=== PATIENT | female | born 1955 | race Caucasian/White ===

== ENCOUNTER → 2020-10-20 15:03 | Outpatient (BNVA) | payer MEDICARE, SELFPAY | PROVIDERS: Visit Provider Urology | DX: N20.0 Calculus of kidney (principal) | CPT/HCPCS: Q3014 ==

== ENCOUNTER → 2021-10-22 10:31 | Outpatient (BNVA) | payer MEDICARE, SELFPAY | DX: N20.0 Calculus of kidney (principal) | CPT/HCPCS: Q3014 ==

== ENCOUNTER → 2022-10-21 08:52 | Outpatient (BNVA) | payer MEDICARE, SELFPAY | PROVIDERS: Visit Provider Nurse Practitioner Family | DX: N20.0 Calculus of kidney (principal); N28.1 Cyst of kidney, acquired | CPT/HCPCS: 99212 ==

== ENCOUNTER 2023-11-15 11:09 | Outpatient (AMB) | payer MEDICARE, SELFPAY ==
--- NOTE | 2023-11-15 11:11 | A.OFFVIS_ITS ---
Intake Visit Reasons: US f/u- [facility] Intake Note: Patient is present for US follow up-[facility] Urology Medications: Vitamin B6 Blood Thinner: aspirin Allergies: none Assistant Community Manager Required: No Accompanied by: Self / Same As Patient Allergies ciprofloxacin Allergy (Unknown, Verified 11/15/23 12:28) Unknown ezetimibe [Zetia] Allergy (Unknown, Verified 11/15/23 12:28) Unknown Medication List - Last Reconciled 11/15/23 by BRANDEN Edmond- aspirin 81 mg PO DAILY atorvastatin 80 mg PO DAILY carbamazepine ER 200 mg PO QID irbesartan 300 mg PO DAILY latanoprost 0.005% 1 drp ophthalmic (eye) BEDTIME meloxicam 15 mg PO DAILY memantine 10 mg PO BID omeprazole 20 mg PO DAILY pioglitazone 45 mg PO DAILY pyridoxine (vitamin B6) 100 mg PO DAILY 90 days timolol maleate 0.5% drps ophthalmic (eye) DAILY HPI Comments Details: Liz is a very pleasant 68 year old female patient of Dr Jones. She presents to the office today for follow-up of her nephrolithiasis. In discussion with the patient today she reports to be doing and feeling well. Recent renal imaging results reviewed with the patient today. Bilateral kidneys with no hydronephrosis. 3 mm nonobstructing right renal calculus. Left kidney with left mid pole renal cyst similar to prior study. She does report noting urinary leakage and nocturia however do not find these symptoms bothersome. She denies hematuria, dysuria, foul smelling urine, changes to urinary stream, flank pain, fever, and or chills. She does report to be drinking plenty of water daily. She reports compliance with vitamin B6 as prescribed. When asked she is happy with her current voiding parameters. In office urinalysis results reviewed with the patient today. Discussed correlation of nocturia with lower leg edema. She otherwise offers no other issues or concerns at this time. Nephrolithiasis/Urolithiasis: Discussed imaging findings Good response Continue fluid intake and vitamin B6 They are here for further evaluation for nephrolithiasis. Urolithiasis was diagnosed 11/[facility]. The patient previously had kidney stones whose composition w unknown. Prior treatment(s) include observation. Prior imaging includes 11/17 , a CT (computed tomography) scan of the abdomen/pelvis (stone protocol) 2mm distal right, 3mm right renal - 10/19 renal ultrasound no evidence of stones -10/21 renal ultrasound 3.7 mm anterior right mid pole Current therapeutic plan will be to continue with imaging surveillance - fluid encouraged - vitamin B6 Follow-up in 12 months Review of Systems Const All systems reviewed & are unremarkable except as noted in HPI and below Reports as per HPI Eyes Reports as per HPI ENT Reports as per HPI Card Reports as per HPI Resp Reports no additional complaints GI Reports no additional complaints Reports as per HPI Musc Reports no additional complaints Neuro Reports no additional complaints Psych Reports no additional complaints Endo Reports no additional complaints Physical Exam Const General: cooperative, healthy appearing, comfortable, no acute distress, well developed, alert and awake Orientation/consciousness: patient oriented x3 Limitations: no limitations HEENT Head: Yes normal to inspection, Yes normocephalic and Yes atraumatic Ears: hearing grossly normal bilaterally Eyes General: appearance normal, both eyes and all related structures Neck Neck: Yes normal visual inspection and Yes trachea midline Chest Chest palpation & inspection: normal inspection of the chest Resp Effort & Inspection: normal respiratory effort and able to speak in complete sentences Cardio Rate: regular rate GI Inspection: Yes normal to inspection General: Yes no CVA tenderness Back/Spine/Pelvis Back: no CVA tenderness Skin General skin exam: no rashes or lesions noted Neuro General: patient oriented x3 Extrem General: Yes normal to inspection Psych Appearance: grossly normal and well kempt Mental Status: mental status grossly normal Speech and movement: Normal speech and movement present and Clear speech present Affect: normal affect Attitude: cooperative Thought process: Normal thought process present Thought content: Normal thought content present Insight: Fair insight present (Psych) Judgement: Fair judgement present (Psych) Results AMB Urinalysis, Automated UA Leukoctes 0 Jose Carlos/uL Last Edit by JIA Lunsford on 11/15/23 11:24 UA Nitrite Negative Last Edit by JIA Lunsford on 11/15/23 11:24 UA Urobilinogen 0.2 mg/dL Last Edit by JIA Lunsford on 11/15/23 11:2 4 UA Protein 100 mg/dL Last Edit by JIA Lunsford on 11/15/23 11:24 UA pH 6.0 Last Edit by JIA Lunsford on 11/15/23 11:24 UA Blood 0 Loco/uL Last Edit by JIA Lunsford on 11/15/23 11:24 UA Specific [place] 1.025 Last Edit by JIA Lunsford on 11/15/23 11: 24 UA Ketone Positive Last Edit by JIA Lunsford on 11/15/23 11:24 UA Bilirubin 1 mg/dL Last Edit by JIA Lunsford on 11/15/23 11:24 UA Glucose 0 mg/dL Last Edit by JIA Lnusford on 11/15/23 11:24 Results Reviewed Results Reviewed: Laboratory Last Values Urine pH (Auto) 6.0 11/15/23 11:23 Specific [place] (Auto) 1.025 11/15/23 11:23 Urine Protein (Auto) 100 mg/dL 11/15/23 11:23 Glucose (UA)(Auto) 0 mg/dL 11/15/23 11:23 Urine Ketones (Auto) Positive 11/15/23 11:23 Urine Blood (Auto) 0 Loco/uL 11/15/23 11:23 Urine Nitrite (Auto) Negative 11/15/23 11:23 Urine Bilirubin (Auto) 1 mg/dL 11/15/23 11:23 Urine Urobilinogen (Auto) 0.2 mg/dL 11/15/23 11:23 Leukocyte Esterase (Auto) 0 Jose Carlos/uL 11/15/23 11:23 Assessment & Plan Assessment & Plan (1) Nephrolithiasis: Code(s): N20.0 - Calculus of kidney Category: Medical (2) Renal cyst: Code(s): N28.1 - Cyst of kidney, acquired Category: Medical Plan In office urinalysis results reviewed with the patient today; as noted above. Recent renal imaging results reviewed with the patient today; as noted above. Patient denies any urological issues or concerns at this time. Continue vitamin B6 as discussed and prescribed. Continue adding 1 oz of lemon juice to water daily. Ultrasound in 1 year. Follow-up in 1 year with imaging to be completed prior; or sooner with any issues, concerns, and or questions. Orders: Orders AMB Urinalysis Automated Today Z13.9 - Encounter for screening, unspecified US renal BI 1 Year N20.0 - Calculus of kidney Patient Instructions: The patient had an opportunity to ask questions regarding the treatment plan. All questions were answered. Physical exam, labs, and imaging were discussed and reviewed in detail. As well as risks, benefits, and discussion of treatment choices. No major barriers to understanding were identified. The patient expressed understanding and agreement with the above treatment plan. The patient was made aware they should contact our office by phone for worsening of their current condition, the appearance of new symptoms, or with any questions or concerns. Compliance is encouraged with any medications and follow up testing that is ordered. It is a privilege to be allowed the opportunity to participate in? your urological care.? Again, if you have any questions or concerns If you have any questions or concerns please do not hesitate to contact me. The office is [phone]. This note is constructed using voice recognition software. While every effort has been made to ensure accuracy paste up copy camera operator errors may have been included. Yours sincerely, BRANDON Edmond Coding Level of Care Code Est Pt Level 3 (49870) Complex EM visit Add On G2211 Diagnoses Nephrolithiasis N20.0 Renal cyst N28.1
== END 2023-11-15 11:58 | disposition home or self-care (01) ==
PROVIDERS: Visit Provider Nurse Practitioner Family
DX: N20.0 Calculus of kidney (principal); N28.1 Cyst of kidney, acquired; Z13.9 Encounter for screening, unspecified
CPT/HCPCS: 99213; G2211

== ENCOUNTER → 2023-11-15 11:09 | Outpatient (BNVA) | payer MEDICARE, SELFPAY | PROVIDERS: Visit Provider Nurse Practitioner Family | DX: N20.0 Calculus of kidney (principal); N28.1 Cyst of kidney, acquired | CPT/HCPCS: 81003; 99212 ==

== ENCOUNTER 2024-11-14 13:17 | Outpatient (AMB) | payer MEDICARE, SELFPAY ==
--- NOTE | 2024-11-14 13:35 | MHC.OFFVIS ---
Intake Visit Reasons: 1y/US(set) Intake Note: Patient presents today for follow up on: renal cyst, nephrolithiasis, and ultrasound results Imaging Completed: 10/29/24 Urology Medications: Vitamin B6 Blood Thinner: aspirin Allergies: none Pediatric Dental Hygienist Required: No Accompanied by: Self / Same As Patient Allergies ciprofloxacin Allergy (Unknown, Verified 11/14/24 14:14) Unknown ezetimibe (Zetia) Allergy (Unknown, Verified 11/14/24 14:14) Unknown Medication List - Last Reconciled 11/14/24 by BRANDNE Edmond- ascorbic acid (vitamin C) 100 mg PO DAILY aspirin 81 mg PO DAILY atorvastatin 80 mg PO DAILY brinzolamide 1% 1 drp ophthalmic (eye) Q8H carbamazepine ER 200 mg PO QID ginkgo biloba PO irbesartan 300 mg PO DAILY latanoprost 0.005% 1 drp ophthalmic (eye) BEDTIME meloxicam 15 mg PO DAILY memantine 10 mg PO BID omeprazole 20 mg PO DAILY pioglitazone 45 mg PO DAILY pyridoxine (vitamin B6) 100 mg PO DAILY 90 days Saccharomyces boulardii (Daily Probiotic (S. boulardii)) PO HPI Comments Details: Liz is a very pleasant 69 year old female patient of Dr Jones. She presents to the office today for follow-up of her nephrolithiasis and renal cyst. In discussion with the patient today she reports to be doing and feeling well. She reports having followed up with her PCP a few months ago as she had been experiencing left-sided lumbar discomfort as well as hip pain. She reports she was empirically treated for potential diverticulitis as she has a longstanding history of diverticulitis. She reports she was unsure if this was related to a musculoskeletal issue as she had been utilizing ice and heat in the area and feels symptoms have since subsided. She discusses her upcoming physical tomorrow. Recent renal imaging results were reviewed 11/22 mild fullness of the left renal pelvis. There are a few small hypoechoic left renal cortical lesions, likely cysts. The largest is located in the upper pole and measures 12 mm per radiology report. We did discuss previous nonobstructing 3 mm stone from previous imaging is not noted on most recent imaging. She currently denies any bothersome urinary issues or concerns. She does report noting urinary leakage and nocturia however do not find these symptoms bothersome. She denies hematuria, dysuria, foul smelling urine, changes to urinary stream, flank pain, fever, and or chills. She does report to be drinking plenty of water daily however pH and urinalysis today 5.5. We did discussed importance of adequate hydration relation to nephrolithiasis as well as overall health and well-being. She reports compliance with vitamin B6 as prescribed. When asked she is happy with her current voiding parameters. She discusses her active lifestyle and traveling to the [facility] in [place]. She otherwise offers no other issues or concerns at this time. Nephrolithiasis/Urolithiasis: Discussed imaging findings Good response Continue fluid intake and vitamin B6 They are here for further evaluation for nephrolithiasis. Urolithiasis was diagnosed 11/17 [facility]. The patient previously had kidney stones whose composition w unknown. Prior treatment(s) include observation. Prior imaging includes 11/17 , a CT (computed tomography) scan of the abdomen/pelvis (stone protocol) 2mm distal right, 3mm right renal - 10/19 renal ultrasound no evidence of stones -10/21 renal ultrasound 3.7 mm anterior right mid pole Current therapeutic plan will be to continue with imaging surveillance - fluid encouraged - vitamin B6 Follow-up in 12 months Review of Systems Const All systems reviewed & are unremarkable except as noted in HPI and below Reports as per HPI Eyes Reports as per HPI ENT Reports as per HPI Card Reports as per HPI Resp Reports no additional complaints GI Reports no additional complaints Reports as per HPI Musc Reports no additional complaints Neuro Reports no additional complaints Psych Reports no additional complaints Endo Reports no additional complaints Physical Exam Const General: cooperative, healthy appearing, comfortable, no acute distress, well developed, alert and awake Orientation/consciousness: patient oriented x3 Limitations: no limitations HEENT Head: Yes normal to inspection, Yes normocephalic and Yes atraumatic Ears: hearing grossly normal bilaterally Eyes General: appearance normal, both eyes and all related structures Neck Neck: Yes normal visual inspection and Yes trachea midline Chest Chest palpation & inspection: normal inspection of the chest Resp Effort & Inspection: normal respiratory effort and able to speak in complete sentences Cardio Rate: regular rate GI Inspection: Yes normal to inspection General: Yes no CVA tenderness Back/Spine/Pelvis Back: no CVA tenderness Skin General skin exam: no rashes or lesions noted Neuro General: patient oriented x3 Extrem General: Yes normal to inspection Psych Appearance: grossly normal and well kempt Mental Status: mental status grossly normal Speech and movement: Normal speech and movement present and Clear speech present Affect: normal affect Attitude: cooperative Thought process: Normal thought process present Thought content: Normal thought content present Insight: Fair insight present (Psych) Judgement: Fair judgement present (Psych) Results AMB Urinalysis, Automated UA Leukoctes 0 Jose Carlos/uL [facility] on 11/14/24 13:59 UA Nitrite Last Edit by [facility], [facility] on 11/14/24 13:59 UA Urobilinogen 0.2 mg/dL Last Edit by [facility], [facility] on 11/14/24 13:59 UA Protein 15 mg/dL Last Edit by [facility], [facility] on 11/14/24 13:59 UA pH 5.[address] [facility], [facility] on 11/14/24 13:59 UA Blood 0 Loco/uL Last Edit by [facility], [facility] on 11/14/24 13:59 UA Specific [place] 1.[address] [facility], [facility] on 11/14/24 13:59 UA Ketone Positive Last Edit by [facility], [facility] on 11/14/24 13:59 UA Bilirubin 0 mg/dL Last Edit by [facility], [facility] on 11/14/24 13:59 UA Glucose 0 mg/dL Last Edit by [facility], [facility] on 11/14/24 13:59 Results Reviewed Results Reviewed: Laboratory Last Values Urine pH (Auto) 5.5 11/14/24 13:37 Specific [place] (Auto) 1.030 11/14/24 13:37 Urine Protein (Auto) 15 mg/dL 11/14/24 13:37 Glucose (UA)(Auto) 0 mg/dL 11/14/24 13:37 Urine Ketones (Auto) Positive 11/14/24 13:37 Urine Blood (Auto) 0 Loco/uL 11/14/24 13:37 Urine Bilirubin (Auto) 0 mg/dL 11/14/24 13:37 Urine Urobilinogen (Auto) 0.2 mg/dL 11/14/24 13:37 Leukocyte Esterase (Auto) 0 Jose Carlos/uL 11/14/24 13:37 Assessment & Plan Assessment & Plan (1) Nephrolithiasis: Code(s): N20.0 - Calculus of kidney Category: Medical (2) Renal cyst: Code(s): N28.1 - Cyst of kidney, acquired Category: Medical Plan In office urinalysis results reviewed with the patient today; as noted above. Recent retroperitoneal ultrasound results reviewed with the patient today; as noted above. Will continue with surveillance monitoring. Continue vitamin B6 as discussed and prescribed. We discussed the importance of adequate hydration relation to nephrolithiasis as well as overall health and well-being. She currently denies any bothersome urinary issues. She reports be happy current voiding parameters. Will obtain retroperitoneal ultrasound in 1 year. Follow-up in 1 year with imaging to be completed prior; or sooner with any issues, concerns, and or questions. Orders: Orders US retroperitoneal comp Today N20.0 - Calculus of kidney, N28.1 - Cyst of kidney, acquired AMB Urinalysis Automated Today Z13.9 - Encounter for screening, unspecified Patient Instructions: The patient had an opportunity to ask questions regarding the treatment plan. All questions were answered. Physical exam, labs, and imaging were discussed and reviewed in detail. As well as risks, benefits, and discussion of treatment choices. No major barriers to understanding were identified. The patient expressed understanding and agreement with the above treatment plan. The patient was made aware they should contact our office by phone for worsening of their current condition, the appearance of new symptoms, or with any questions or concerns. Compliance is encouraged with any medications and follow up testing that is ordered. It is a privilege to be allowed the opportunity to participate in? your urological care.? Again, if you have any questions or concerns If you have any questions or concerns please do not hesitate to contact me. The office is [phone]. This note is constructed using voice recognition software. While every effort has been made to ensure accuracy singe machine operator errors may have been included. Yours sincerely, BRANDON Edmond Coding Level of Care Code Est Pt Level 3 (36903) Complex EM visit Add On G2211 Diagnoses Nephrolithiasis N20.0 Renal cyst N28.1
--- OUTSIDE RECORDS SUMMARY | 2024-11-14 13:45 | XMS_ITS | Patient Health Record ---
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 Name Role Phone Kirill Live MD Primary Care Provider Zuleima Hunter [phone] Allergies Allergen (clinical drug ingredient) Drug/Non Drug Allergy documented on EMR Reaction Allergy Type Onset Date Status brimonidine Alphagan P Unknown Drug Allergy Acti ve ciprofloxacin CIPRO Diarrhea Drug Allergy Act varsha ezetimibe Zetia Unknown Drug Allergy Active Reason For Referral No Information Medications Medication SIG (Take, Route, Frequency, Duration) Notes Start Date End Date Status Memantine HCl 10 MG 1 tablet Orally Twic e a day; Duration: 30 day(s) Active Timoptic 0.5 % 1 drop into affected eye Ophthalmic Once a day Active PreserVision AREDS - as directed Orally Active Meloxicam 15 MG 1 tablet Orally Once a day Active Atorvastatin Calcium 80 MG 1 tablet Orally Once a day Active Omeprazole 20 MG 1 capsule 30 minutes before morning meal Orally Once a day; Duration: 30 day(s) Active Actos 45 MG 1 tablet Orally Once a day; Duration: 30 day(s) Active Calcium 600 MG 1 tablet with meals Orally Twice a day; Duration: 30 day(s) Active Aspirin EC 81MG 1 ORAL daily; Duration: -3 09/05/2011 Active Latanoprost 0.005 % Ophthalmic Active Vitamin B6 100 MG 1 tablet Orally Once a day; Duration: 30 day(s) Unknown Dose Active Social History Tobacco Use: Social History Observation Description Date Details (start date - stop date) Former Smoker NA - NA Tobacco Use/Smoking Question Answer Notes Are you a former smoker How long has it been since you last smoked? > 10 years Alcohol Screen (Audit-C) Question Answer Notes Did you have a drink contain ing alcohol in the past year? Yes How often did you have a dri nk containing alcohol in the past year? 2 to 4 times a month (2 points) How many drinks did you have on a typical day when you were drinking in the past year? 1 or 2 drinks (0 point) Points 2 Interpretation Negative Sexual History Question Answer Notes Had sex in the past 12 months (vaginal, oral, or anal)? No Section Notes: Marital status: single Children: none Occupation: employed full-time Nutrition: average diet Exercise: regular walking Sexual activity: not sexually active Contraception: menopause .CE: Smoking: Former smoker .CE: Alcohol: socially drinks alcohol Text messaging while driving: no Sunscreen: yes Illicit drugs: no Seatbelt: yes Problems Problem Type SNOMED Code ICD Code Onset Dates Problem Status W/U Status Risk Notes Problem Postmenopausal atrophic vaginitis (33434473) Postmenopausal atrophic vaginitis (N95.2) Active confirmed Problem Type II diabetes mellitus without complication (438036570) Diabetes mellitus without mention of complication, type II or unspecified type, not stated as uncontrolled (250.00) Active confirmed Major Problem Hyperlipidemia (76010004) Other and unspecified hyperlipidemia (272.4) Active confirmed Major Problem Obesity (263949321) Obesity, unspecified (278.00) Active confirmed Diag Problem Glaucoma (90762698) Unspecified glaucoma (365.9) Active confirmed Major Problem Benign essential hypertension (1982818) Essential hypertension, benign (401.1) Active confirmed Major Problem Esophageal reflux (961039772) Esophageal reflux (530.81) Active confirmed Major Problem Menopausal symptom (58851901) Symptomatic menopausal or female climacteric states (627.2) Active confirmed Major Problem Osteoarthritis (205133024) Osteoarthrosis, unspecified whether generalized or localized, unspecified site (715.90) Active confirmed Major Problem Gynecological examination normal (151930081204805) Routine gynecological examination (V72.31) Active confirmed Major Problem Screening for malignant neoplasm of colon (235130077) Special screening for malignant neoplasms, colon (V76.51) Active confirmed Major Plan Of Treatment Pending Test Test Name Order Date MAMMOGRAM, SCREENING 02/17/2017 MAMMOGRAM, SCREENING 03/31/2021 MAMMOGRAM, SCREENING 03/31/2023 MAMMOGRAM, SCREENING 01/26/2016 THIN PREP,HPV,[place] IF HPV+ (>29YR)(DIAG) 10/12/2018 BONE DENSITY 02/17/2017 BONE DENSITY 03/31/2023 MM Digital Mammo Screening 01/26/2016 MM Digital Mammo Screening 02/17/2017 MM Digital Mammo Screening 03/31/2021 MM Digital Mammo Screening 03/31/2023 PELVIC ULTRASOUND W/TRANSVAGINAL 019 Insurance Providers Payer Name Payer Address Payer Phone Subscriber Number Group Number Insured Name Patient Relationship to Insured Coverage Start Date Coverage End Date MEDICARE [address] [place], [place] [id number] [phone] [id number] DEZ JOY Self - patient is the insured MEDEX [address] [place] [address] [phone] [id number] DEZ JOY Self - patient is the insured Medical (General) History Medical History History ICD Code Obesity, unspecified E66.9 Unspecified osteoarthritis, unspecified site M19.90 Other specified diabetes mellitus withou t complications E13.9 Gastro-esophageal reflux disease without esophagitis K21.9 Hyperlipidemia, unspecified E78.5 Essential (primary) hypertension I10 Unspecified glaucoma H40.9 Menopausal and female climacteric states N95.1 Postmenopausal atrophic vaginitis N95.2 Surgical History Surgery Date(Month/Year) [place] Teeth Right Shoulder Surgery Left Elbow Surgery Right Arm Surgery Bilateral Knee Surgery - Arthroscopic Torn Meniscus Repair - Right Knee 2015 Colonoscopy Tendon Transfer Left Hand Hospitalization History Reason Date(Month/Year) See Surgical Hx
--- OUTSIDE RECORDS SUMMARY | 2024-11-14 13:45 | XMS_ITS | Clinical Summary ---
Author Organization [facility] [address] [facility] Address [address] [place] [address] Phone Care Team Providers Care Rn Renal Name Role Phone Lam Live MD Primary Care Provider [phone] Allergies Active Allergy Reactions Criticality Noted Date Comments Brimonidine Itching 03/27/2024 Red itchy eyes Ciprofloxacin Diarrhea 03/05/2024 Medications omeprazole 20 mg tablet,disinteg rat, delay rel 20 mg 1 (one) time each day. 1 Active timolol (TIMOPTIC) 0.5 % ophthalmic solution Administer 1 drop into both eyes 1 (one) time each day. 4 Active atorvastatin (LIPITOR) 80 mg tablet Take 1 tablet (80 mg total) by mouth 1 (one) time each day. 9 Active aspirin 81 mg EC tablet Take 1 tablet (81 mg total) by mouth 1 (one) time. 9 Active calcium carbonate 1,500 mg (600 mg elemental calcium) tablet Take 1 tablet (1,500 mg total) by mouth 1 (one) time each day. Active carBAMazepine (TEGretol) 200 mg tablet Take 1 tablet (200 mg total) by mouth 4 (four) times a day. 4 Active meloxicam (MOBIC) 15 mg tablet Take 1 tablet (15 mg total) by mouth 1 (one) time each day. Active irbesartan-hydr oCHLOROthiazide (AVALIDE) 300-12.5 mg per tablet Take 1 tablet by mouth 1 (one) time each day. Active latanoprost (XALATAN) 0.005 % ophthalmic solution Administer 1 drop into the left eye at bedtime. 4 Active memantine (NAMENDA) 10 mg tablet Take 1 tablet (10 mg total) by mouth 2 (two) times a day. 4 Active irbesartan (AVAPRO) 300 mg tablet Take 1 tablet (300 mg total) by mouth 1 (one) time each day. Active pioglitazone (ACTOS) 45 mg tablet Take 1 tablet (45 mg total) by mouth 1 (one) time each day. Active pyridoxine HCl, vitamin B6, (VITAMIN B-6 ORAL) Take 100 mg by mouth 1 (one) time each day. 1 Active vit C/E/Zn/coppr/mady tein/zeaxan (PRESERVISION AREDS-2 ORAL) Take by mouth. A ctive Encounters Date Type Department Care Team Description 10/29/2024 1:31 PM EDT - 10/29/2024 11:59 PM EDT Hospital Encounter [facility] Ultrasound [address] [place] [id number] Calculus of kidney Discharge Disposition: Home or Self Care from Last 3 Months Surgical History Surgery Date Site/Laterality Comments KNEE SURGERY Bilateral TORN MANISCUS SHOULDER SURGERY Right CATARACT EXTRACTION Left GLAUCOMA SURGERY Left ARM/ELBW SOF TISS BX SUPRFCIAL (39146) Le ft FINGER SURGERY Left TRIGGER FINGER RELEASE FINGER THUMB RT Right TENDON REPLACED Medical History Medical History Date Comments TMJ (dislocation of temporomandibular joint) Glaucoma Hyperlipidemia Hypertension GERD (gastroesophageal reflux disease) Family History Medical History Relation Name Comments Colon cancer Father Relation Name Status Comments Father Social History Tobacco Use Types Packs/Day Years Used Date Smoking Tobacco: Former Cigarettes Smokeless Tobacco: Never Interpersonal Safety Answer Date Record ed Physical Abuse 04/05/2024 Verbal Abuse 04/05/2024 Comments No Sex and Gender Information Value Date Recorded Sex Assigned at Female 02/14/2024 7:14 PM EDT Legal Sex Female 8:08 AM EST Gender Identity Female 02/14/2024 7:14 PM EDT Sexual Orientation Choose not to disclose 2023 7:14 PM EDT Obstetrics History Last Filed Vital Signs Vital Sign Reading Time Taken Comments Blood Pressure 138/76 04/05/2024 9:00 AM EST Pulse 74 04/05/2024 9:00 AM EST Temperature 36.3 C (97.4 F) 04/05/2024 7:36 AM EST Respiratory Rate 17 04/05/2024 9:00 AM EST Oxygen Saturation 100% 04/05/2024 9:00 AM EST Inhaled Oxygen Concentration - - Weight 93.4 kg (206 lb) 04/05/2024 7:36 AM EST Height 162.6 cm (5' 4 ) 04/05/2024 7:36 AM EST Body Mass Index 35.36 04/05/2024 7:36 AM EST Plan of Treatment Health Maintenance Due Date Last Done Comments DTaP,Tdap,and Td Vaccines (1 - Tdap) 1972 Pneumococcal Vaccine: 50+ Years (1 of 1 - PCV) 2003 Zoster Vaccines (1 of 2) 2003 Cholesterol Screening (Lipid Panel) 04/03/2022 Depression Screening 04/03/2022 Hepatitis C Screening 04/03/2022 Medicare Annual Wellness Visit 04/03/2022 Social Influencers of Health Screening 04/03/2022 COVID-19 Vaccine ( season) 2024 01/14/2024, 02/28/2023, 03/01/2022, Additional history exists Hypertension/CHF/CAD Annual BMP Blood Test 11/08/2024 Influenza Vaccine (#1) 2024 , 01/31/2022, 02/04/2021, Additional history exists Falls Risk Assessment 04/05/2025 04/05/2024 Breast Cancer Screening 02/13/2026 02/14/20 24, 02/07/2023, 01/11/2022, Additional history exists Osteoporosis Screening (Bone Density Screening) 11/28/2028 11/28/2018 Colorectal Cancer Screening: Colonoscopy 04/05/2034 04/05/2024 RSV Immunization Adult Patients Completed 02/28/2023 HIB Vaccines Aged Out No longer eligi ble based on patient's age to complete this topic HPV Vaccines Aged Out No longer eligi ble based on patient's age to complete this topic Hepatitis A Vaccines Aged Out No long er eligible based on patient's age to complete this topic Hepatitis B Vaccines Aged Out No long er eligible based on patient's age to complete this topic IPV Vaccines Aged Out No longer eligi ble based on patient's age to complete this topic MMR Vaccines Aged Out No longer eligi ble based on patient's age to complete this topic Meningococcal ACWY Vaccine Aged Out N o longer eligible based on patient's age to complete this topic Meningococcal B Vaccine Aged Out No l onger eligible based on patient's age to complete this topic RSV Immunization Patients Under 20 months Aged Out No longer eligible based on patient's age to complete this topic Varicella Vaccines Aged Out No longer eligible based on patient's age to complete this topic Procedures Procedure Name Priority Date/Time Associated Diagnosis Comments US RETROPERITONEAL COMPLETE Routine 10/29/2024 1:56 PM EDT Calculus of kidney COLONOSCOPY Routine 04/05/2024 8:39 AM EST Rectal bleeding [facility] SCREENING DIGITAL Routine 02/14/2024 3:37 PM EDT Encounter for screening mammogram for malignant neoplasm of breast [facility] DEXA AXIAL SKELETON Routine 11/29/19 1:59 PM EDT Encounter for screening for osteoporosis from Last 3 Months or Most Recently Relevant to Health Maintenance Results * US Retroperitoneal Complete (10/29/2024 1:56 PM EDT) Anatomical Region Laterality Modality Body Ultrasound 10/29/2024 2:21 PM EDT Impressions 10/29/2024 2:23 PM EDT Mild left renal pelvic fullness. Small left renal cortical cysts. No sonographically visible urinary collecting system calculus. -------- FINAL REPORT -------- Dictated By: Teo Foley Dictated Date: 10/29/2024 14:21 ET Assigned Physician: Teo Foley Reviewed and Electronically Signed By: Teo Foley Signed Date: 10/29/2024 14:23 ET Workstation ID: [id number] Transcribed By: Self Edit Transcribed Date: 10/29/2024 14:21 ET Narrative 10/29/2024 2:23 PM EDT PROCEDURE: Renal ultrasound. HISTORY: calculus of kidney. TECHNIQUE: Grayscale, color Doppler, and spectral Doppler ultrasound of the kidneys. COMPARISON: CT 11/11/2019. FINDINGS: The right kidney measures 11 cm in length. The left kidney measures 11.4 cm in length. Mild fullness of the left renal pelvis. There are a few small hypoechoic left renal cortical lesions, likely cysts. The largest is located in the upper pole and measures 12 mm. Limited views of the urinary bladder are unremarkable. Neither ureteral jet is visualized; this is a nonspecific finding. Procedure Note Teo Foley MD - 10/29/2024 PROCEDURE: Renal ultrasound. HISTORY: calculus of kidney. TECHNIQUE: Grayscale, color Doppler, and spectral Doppler ultrasound ofthe kidneys. COMPARISON: CT 11/11/2019. FINDINGS: The right kidney measures 11 cm in length. The left kidney measures 11.4 cm in length. Mild fullness of the left renal pelvis. There are a few small hypoechoicleft renal cortical lesions, likely cysts. The largest is located in theupper pole and measures 12 mm. Limited views of the urinary bladder are unremarkable. Neither ureteraljet is visualized; this is a nonspecific finding. IMPRESSION: Mild left renal pelvic fullness. Small left renal cortical cysts. No sonographically visible urinary collecting system calculus. -------- FINAL REPORT -------- Dictated By: Teo Foley Dictated Date: 10/29/2024 14:21 ET Assigned Physician: Teo Foley Reviewed and Electronically Signed By: Teo Foley Signed Date: 10/29/2024 14:23 ET Workstation ID: [id number] Transcribed By: Self Edit Transcribed Date: 10/29/2024 14:21 ET us Juanis Plummer OFFENSIVE COORDINATOR IM US PROCEDURES Final Res ult * COLONOSCOPY Anesthesia - MAC; [facility] ENDOSCOPY (04/05/2024 8:39 AM EST) Anatomical Region Laterality Modality Endoscopy 04/05/2024 8:16 AM EST Impressions 04/05/2024 8:37 AM EST - Diverticulosis in the left colon. - The examination was otherwise normal on direct and retroflexion views. - No specimens collected. Recommendation: - Patient has a contact number available for emergencies. The signs and symptoms of potential delayed complications were discussed with the patient. Return to normal activities tomorrow. Written discharge instructions were provided to the patient. - Resume previous diet. - Continue present medications. Narrative 04/05/2024 8:37 AM EST [facility] GI Patient Name: Liz Joy Procedure Date: 04/05/2024 8:16 AM Date of : 1955 Age: 68 Gender: Female Note Status: Finalized Attending MD: Benjamin Colón MD, Procedure Date No Time: 04/05/2024 Procedure: Colonoscopy Indications: Colon cancer screening in patient at increased risk: Family history of 1st-degree relative with colon polyps before age 60 years Providers: Benjamin Colón MD Referring MD: Benjamin Colón MD Medicines: Monitored Anesthesia Care Complications: No immediate complications. Estimated Blood Loss: Estimated blood loss: none. Procedure: After I obtained informed consent, the scope was passed under direct vision. Throughout the procedure, the patient's blood pressure, pulse, and oxygen saturations were monitored continuously. The Colonoscope was introduced through the anus and advanced to the cecum, identified by appendiceal orifice and ileocecal valve. The colonoscopy was performed without difficulty. The patient tolerated the procedure well. The quality of the bowel preparation was adequate. Findings: Multiple small and large-mouthed diverticula were found in the left colon. The exam was otherwise without abnormality on direct and retroflexion views. Procedure Code(s): --- Professional --- G0105, Colorectal cancer screening; colonoscopy on individual at high risk Diagnosis Code(s): --- Professional --- Z83.71, Family history of colonic polyps K57.30, Diverticulosis of large intestine without perforation or abscess without bleeding CPT copyright 2020 [employer]. All rights reserved. The codes documented in this report are preliminary and upon certified coder review may be revised to meet current compliance requirements. MD Benjamin Han MD 04/05/2024 8:37:48 AM This report has been signed electronically.Benjamin Colón MD Number of Addenda: 0 Note Initiated On: 04/05/2024 8:16 AM Scope In: Scope Out: Endoscopy Department at [facility] - [address] [place] [id number] Procedure Note Benjamin Colón MD - 04/05/2024 [facility] GI Patient Name: Liz Joy Procedure Date: 04/05/2024 8:16 AM Date of : 1955 Age: 68 Gender: Female Note Status: Finalized Attending MD: Benjamin Colón MD, Procedure Date No Time: 04/05/2024 Procedure: Colonoscopy Indications: Colon cancer screening in [facility] at [facility]: Family history of 1st-degree relative with colon polyps before age 60 years Providers: Benjamin Colón MD Referring MD: Benjamin Colón MD Medicines: Monitored Anesthesia Care Complications: No immediate complications. Estimated Blood Loss: Estimated blood loss: none. Procedure: After I obtained informed consent, the scope was passed under direct vision. Throughout theprocedure, the patient's blood pressure, pulse, and oxygen saturations were monitored continuously. The Colonoscope was introduced through the anus and advanced to the cecum, identified by appendiceal orifice and ileocecal valve. The colonoscopy was performed without difficulty. The patient tolerated the procedure well. The quality of the bowel preparation was adequate. Findings: Multiple small and large-mouthed diverticula were found in the left colon. The exam was otherwise without abnormality ondirect and retroflexion views. Procedure Code(s): --- Professional --- G0105, Colorectal cancer screening; colonoscopy on individual at high risk Diagnosis Code(s): --- Professional --- Z83.71, Family history of colonic polyps K57.30, Diverticulosis of large intestine without perforation or abscess without bleeding CPT copyright 2020 [employer]. All rights reserved. The codes documented in this report are preliminary and upon certified coder reviewmay be revised to meet current compliance requirements. MD Benjamin Han MD 04/05/2024 8:37:48 AM This report has been signed electronically.Benjamin Colón MD Number of Addenda: 0 Note Initiated On: 04/05/2024 8:16 AM Scope In: Scope Out: Endoscopy Department at [facility] - [address] [place] [phone] IMPRESSION: - Diverticulosis in the left colon. - The examination was otherwise normal on directand retroflexion views. - No specimens collected. Recommendation: - Patient has a contact number available for emergencies. The signs and symptoms of potential delayed complications were discussed with thepatient. Return to normal activities tomorrow. Written discharge instructions were provided to thepatient. - Resume previous diet. - Continue present medications. us Benjamin Colón MD GI~PROCEDURE ORDERABLES Final R esult * [facility] SCREENING DIGITAL (02/14/2024 3:37 PM EDT) Anatomical Region Laterality Modality Mammography 02/14/2024 12:3 7 PM EDT Narrative 02/14/2024 3:[address] [facility] Diagnostic Imaging Department [address] [place] [id number] Patient: LIZ JOY /Age/Sex: 1955 - 68 - F Unit#: [id number] Location/Status: SPDIMAM/REG CLI Mnemonic/Ordering Site: DIGSC/SPMAM Ordering Physician: BLAYNE MEDINA MD [facility] Screening Digital - 02/14/24 - 1300 Report Status:Signed EXAM: [facility] Screening Digital EXAM DATE AND TIME: 02/14/2024 1:01 PM HISTORY: Screening. COMPARISON: 02/06/23, 01/11/22, 12/22/20 TECHNIQUE: Bilateral digital breast tomosynthesis was performed in the CC and MLO projections. Computer aided detection with [employer] 3D 3.1 was employed. TISSUE DENSITY: b. There are scattered areas of fibroglandular density. FINDINGS: No suspicious masses, grouped microcalcifications, or areas of architectural distortion are seen. The skin and vascularity are unremarkable. IMPRESSION: Stable mammographic appearance of the breasts. No evidence of malignancy is seen. A negative mammogram in the presence of a clinically suspicious palpable abnormality does not preclude the possibility of malignancy or alter the indications for biopsy. BI-RADS: Category 1: Negative RECOMMENDATION(S): 1: Routine screening mammogram BILATERAL in 1 year. Mammogram performed at [facility] at [address] [address] Dictating Physician: GISELE OLIIVER MD Electronically Signed by: GISELE OLIVIER MD Dic Date/Time: 02/14/24 1537 Sign date/Time: 02/14/24 153 Procedure Note Gisele Olivier MD - 02/27/[address] [facility] Diagnostic Imaging Department [address] [place] [address] Patient: LIZ JOY HALLEY /Age/Sex: 1955 - 68 -F Unit#: [id number] [facility]onic[facility]Ordering Site: [facility] Ordering Physician: BLAYNE MEDINA MD [facility] Screening Digital - 02/14/24 - 1300 Report Status:Signed EXAM: [facility] Screening Digital EXAM DATE AND TIME: 02/14/2024 1:01 PM HISTORY: Screening. COMPARISON: 02/06/23, 01/11/22, 12/22/20 TECHNIQUE: Bilateral digital breast tomosynthesis was performed in the CCand MLO projections. Computer aided detection with [employer] 3D 3.1was employed. TISSUE DENSITY: b. There are scattered areas of fibroglandular density. FINDINGS: No suspicious masses, grouped microcalcifications, or areas ofarchitectural distortion are seen. The skin and vascularity are unremarkable. IMPRESSION: Stable mammographic appearance of the breasts. No evidence of malignancyis seen. A negative mammogram in the presence of a clinically suspicious palpable abnormality does not preclude the possibility of malignancy or alter the indications for biopsy. BI-RADS: Category 1: Negative RECOMMENDATION(S): 1: Routine screening mammogram BILATERAL in 1 year. Mammogram performed at [facility] at [address] [address] Dictating Physician: GISELE OLIVIER MD Electronically Signed by: GISELE OLIVIER MD Dic Date/Time: 02/14/241536 Sign date/Time: 02/14/241536 us Blayne Medina MD IMG BI PROCEDURES Final Re sult * [facility] DEXA AXIAL SKELETON (11/28/2018 1:59 PM EDT) Anatomical Region Laterality Modality Mammography 11/28/2018 12:5 2 PM EDT Narrative 11/28/2018 1:[address] [facility] Diagnostic Imaging Department [address] [place] [id number] Patient: LIZ JOY /Age/Sex: 1955 - 63 - F Unit#: [id number] Location/Status: SPDIMA/REG I [facility] Ordering Physician: BLAYNE MEDINA MD [facility] Dexa Axial Skeleton - 11/28/18 - 8 HISTORY: The patient is a 63-year-old postmenopausal female with clinical concern for metabolic bone disease. FINDINGS: Dual energy x-ray absorptiometry of the lumbar spine and femurs is performed. The mean bone mineral density at L1-L4 is 1.147 gm/cm2 which is 97% of that of young normals and 106% of that of age matched controls. This yields a T-score of -0.3 and a Z-score of 0.6 and there is therefore no evidence of osteoporosis or osteopenia here. The mean bone mineral density of the femurs bilaterally is 1.084 gm/cm2 which is 108% of that of young normals and 117% of that of age matched controls. This yields a T-score of 0.6 and a Z-score of 1.3 and there is therefore no evidence of osteoporosis or osteopenia here. IMPRESSION: 1. There is no evidence of osteoporosis or osteopenia. There has been a decrease of 5.7% in bone mineral density in the lumbar spine since the prior examination of 10/01/2012. There has been an increase of 1.8% in bone mineral density in the right femur and a decrease of 5.3% in bone mineral density in the left femur. 2. FRAX analysis yields a 10-year probability of major osteoporotic fracture of 7.1% and a 10-year probability of hip fracture of 0.4%. Code 74279 Dictating Physician: LAM HEMPHILL MD Electronically Signed by: LAM HEMPHILL MD Dic Date/Time: 11/28/18 1358 Sign date/Time: 11/28/18 1359 Procedure Note Lam Hemphill - 04/20/[address] [facility] Diagnostic Imaging Department [address] [place] [address] Patient: RUFINO,LIZ Lane./Age/Sex: 1955 63 - F Unit#: [id number] Location/Status: SPDIMA/REG CLI Mnemonic/Ordering Site: [facility] Ordering Physician: BLAYNE MEDINA MD [facility] Dexa Axial Skeleton - 11/28/18 - 1318 HISTORY: The patient is a 63-year-old postmenopausal female withclinical concern for metabolic bone disease. FINDINGS: Dual energy x-ray absorptiometry of the lumbar spine and femursis performed. The mean bone mineral density at L1-L4 is 1.147 gm/cm2 which is97% of that of young normals and 106% of that of age matched controls. Thisyields a T-score of -0.3 and a Z-score of 0.6 and there is therefore no evidenceof osteoporosis or osteopenia here. The mean bone mineral density of the femurs bilaterally is 1.084 gm/nd4aujlm is 108% of that of young normals and 117% of that of age matched controls.This yields a T-score of 0.6 and a Z-score of 1.3 and there is therefore noevidence of osteoporosis or osteopenia here. IMPRESSION: 1. There is no evidence of osteoporosis or osteopenia. There has been a decrease of 5.7% in bone mineral density in the lumbar spine since theprior examination of 10/01/2012. There has been an increase of 1.8% in bonemineral density in the right femur and a decrease of 5.3% in bone mineral densityin the left femur. 2. FRAX analysis yields a 10-year probability of major osteoporoticfracture of 7.1% and a 10-year probability of hip fracture of 0.4%. Code 91376 Dictating Physician: LAM HEMPHILL MD Electronically Signed by: LAM HEMPHILL MD Dic Date/Time: 11/28/18 1358 Sign date/Time: 11/28/18 1350 Blayne Medina MD IMG BI PROCEDURES Final Re sult from Last 3 Months or Most Recently Relevant to Health Maintenance Insurance [employer] MEDICARE MEDICARE MEDEX [facility] Care Teams Rn Renal Relationship Specialty Start Date End Date Lam Live MD [address] [place] [address] PCP - General Internal Medicine 03/23/24
== END 2024-11-14 14:12 | disposition home or self-care (01) ==
LOC: HO.HUSH 13:18
PROVIDERS: Visit Provider Nurse Practitioner Family
DX: N20.0 Calculus of kidney (principal); N28.1 Cyst of kidney, acquired; Z13.9 Encounter for screening, unspecified
CPT/HCPCS: 99213; G2211

== ENCOUNTER → 2024-11-14 13:17 | Outpatient (BNVA) | payer MEDICARE, SELFPAY | PROVIDERS: Visit Provider Nurse Practitioner Family | DX: N20.0 Calculus of kidney (principal); N28.1 Cyst of kidney, acquired | CPT/HCPCS: 81003; 99212 ==